=== PATIENT | male | born 1970 | race Caucasian/White ===

== ENCOUNTER 2021-12-11 13:54 | Emergency (ER) | payer SELFPAY ==
[2021-12-11] MEDS ORDERED: Tetracaine 0.5% PF 4 ML BOT ONE ×2 (14:35→14:37)
[2021-12-11] MEDS ORDERED: Fluorescein Opthalmic Strip ONE ×2 (14:35→14:38)
== END 2021-12-11 14:55 | disposition home or self-care (01) ==
LOC: MADERS 13:54
DX: T15.92XA Foreign body on external eye, part unspecified, left eye, initial encounter (principal); F17.220 Nicotine dependence, chewing tobacco, uncomplicated; I10 Essential (primary) hypertension; M10.9 Gout, unspecified
CPT/HCPCS: 99283